=== PATIENT | female | born 1995 | race Caucasian/White ===

== ENCOUNTER 2016-07-01 18:23 | Emergency (ER) | payer OTHER ==
[2016-07-01 18:42] VITALS: BP 133/97
[2016-07-01] MEDS ORDERED: Amoxicillin CAP* 500 MG PO ONE (18:50)
[2016-07-01] MEDS ORDERED: Ibuprofen TAB* 600 MG PO ONE (18:50)
--- NOTE | 2016-07-01 18:52 | UC ---
Ear Complaint HPI - HPI Summary HPI Summary: 21 yo female with URI sx x 1 day Now with moderate right ear pain and decreased hearing no f/c - History of Current Complaint Chief Complaint: UCEar Stated Complaint: EAR PAIN Time Seen by Provider: 07/01/16 18:44 Hx Obtained From: Patient Hx Last Menstrual Period: 06/27/16 Onset/Duration: Sudden Onset, Lasting Hours Severity Initially: Moderate Severity Currently: Moderate Pain Intensity: 6 Pain Scale Used: 0-10 Numeric Aggravating Factors: Nothing Alleviating Factors: Nothing Associated Signs/Symptoms: Positive: Hearing Loss, URI Symptoms - Allergies/Home Medications Allergies/Adverse Reactions: Allergies Allergy/AdvReac Type Severity Reaction Status Date / Time No Known Allergies Allergy Verified 07/01/16 18:38 PMH/Surg Hx/FS Hx/Imm Hx Previously Healthy: Yes Endocrine History Of: Denies: Diabetes, Thyroid Disease Cardiovascular History Of: Denies: Cardiac Disorders, Hypertension Respiratory History Of: Denies: COPD, Asthma GI/ History Of: Denies: Ulcer - Surgical History Surgical History: None - Family History Known Family History: Positive: Hypertension Negative: Cardiac Disease, Diabetes - Social History Alcohol Use: Weekly Substance Use Type: None Smoking Status (MU): Never Smoked Tobacco Household Exposure Type: Cigarettes Review of Systems Constitutional: Negative Skin: Negative Eyes: Negative ENT: Ear Ache, Nasal Discharge Respiratory: Negative Cardiovascular: Negative Gastrointestinal: Negative Genitourinary: Negative Motor: Negative Neurovascular: Negative Musculoskeletal: Negative Neurological: Negative Psychological: Negative All Other Systems Reviewed And Are Negative: Yes Physical Exam Triage Information Reviewed: Yes Appearance: Well-Appearing, No Pain Distress, Well-Nourished Vital Signs: Initial Vital Signs Temp 99.0 F 07/01/16 18:39 Pulse 79 07/01/16 18:39 Resp 14 07/01/16 18:39 BP 133/97 07/01/16 18:39 Pulse Ox 100 07/01/16 18:39 Vital Signs Reviewed: Yes Eye Exam: Normal ENT: Positive: TM bulging, TM red. Negative: Hearing grossly normal - decreased hearing right, Tonsillar exudate, Trismus Neck: Positive: Supple, Nontender Respiratory: Positive: Lungs clear, Normal breath sounds, No respiratory distress, No accessory muscle use Cardiovascular: Positive: RRR, No Murmur Musculoskeletal: Positive: Strength Intact, ROM Intact Neurological: Positive: Alert Psychological Exam: Normal Skin Exam: Normal Ear Complaint Course/Dx - Course Course Of Treatment: advised to get BP rechecked - Differential Dx/Diagnosis Provider Diagnoses: right otitis media. viral URI Discharge - Discharge Plan Condition: Stable Disposition: HOME Prescriptions: Amoxicillin (*) [Amoxicillin 875 MG (*)] 875 mg PO BID #20 tab Fluconazole 150 MG (NF) [Diflucan 150 mg (NF)] 150 mg PO ONCE #1 tab Ibuprofen TAB* [Motrin TAB* 600 MG] 600 mg PO QID PRN #40 tab PRN Reason: Pain Patient Education Materials: Otitis Media (ED) Referrals: No Primary Care Phys,NOPCP [Primary Care Provider] - [facility] [Outside] Additional Instructions: recheck in 2 weeks if hearing not back to normal
== END 2016-07-01 19:04 | disposition home or self-care (01) ==
LOC: UCEAST 18:23
DX: H66.91 Otitis media, unspecified, right ear (principal); J06.9 Acute upper respiratory infection, unspecified
CPT/HCPCS: 99202; A9270-GY; G0463